=== PATIENT | female | born 1990 | race Caucasian/White ===

== ENCOUNTER → 2017-02-23 | Outpatient (CLI) | payer MEDICAID ==
[~2017-02-23] MED LIST: ACETAMINOPHEN500 M3 PO; BIRTH CONTROL PILL PO; CIPRO 500MG TA500 MG PO; IBUPROFEN400 MG PO; MIRENA52 MG IU; PREDNISONE 20MG20 MG PO; PRENATAL PLUS1 TA1 PO; RANITIDINE HCL150 MG PO; TESSALON PERLE100 MG PO; TESSALON PERLE200 MG PO; TRAMADOL 50MG T50 MG PO; TYLENOL W/CODEI1 TA2 PO; VOLTAREN75 MG PO; ZITHROMAX Z PA250 MG PO; ZITHROMAX Z-PA250 M1 PO; ZOLOFT 50MG TAB50 MG PO
--- NOTE | 2017-02-23 22:37 | RADIOLOGY REPORT PS360 ---
US PREG COMP: INDICATION: 20 WEEK ANATOMICAL SURVEY ORDERING PHYSICIAN: Thor Painting MD PATIENT AGE: 26 years TECHNIQUE: ultrasound transabdominal scanning. COMPARISON: No previous relevant studies. FINDINGS: Single viable intrauterine gestation. Breech position with turning during scan Placenta: Posterior placenta grade 1. There is average amount fluid. The cervix appears satisfactory. Long closed measuring 5.7 cm In length. Complete survey performed and was unremarkable on the submitted images as in PACS. No discrete anomalies identified on survey imaging by technologist. Active fetus.Three-vessel cord with satisfactory umbilical cord insertion. Survey of brain & ventricles. In posterior fossa unremarkable. Face and neck survey unremarkable. Nasion intactNasion face, lips imaging unremarkable Diaphragm and chest views unremarkable. 4- chamber heart imaged. Cine loop included at heart. LVOT imaged Appears to be a male fetus Abdomen: Both kidneys noted and unremarkable. Stomach noted and satisfactory. Spine: Survey of the spine satisfactory with no anomalies identified nor imaged. Both arms and legs noted. Amniotic Fluid: Adequate. Maternal adnexa: No significant findings encountered. Measurements: Average ultrasound age 21 weeks 4 days. Gestational Age 21 weeks 2 days... Based on LMP 09/27/2016. Estimated due date by ultrasound age 207/06/2017. Estimated weight 405 g +/- 50 9 g grams. BPD = 20 weeks 5 days OFD = 21 weeks 2 days HC = 20 week 3 day AC = 21 week 1 day FL = 21 week 4 day Heart Rate = 149 BPM Cerebellum = 20 week 3 day Humerus = 21 week 2 day HC/AC =. 1.11 (1.09-1.26.(1.09-1.26.) CI = 76% (70-86%).(70-86%). FL/BPD is 74 %. FL/AC is 23 %. IMPRESSION: 21 weeks 4 days average ultrasound age breech position , but turned during the exam Posterior placenta no previa . Anatomical survey of unremarkable & WNL
== END ==
LOC: RAD 10:21
DX: Z36.0 Encounter for antenatal screening for chromosomal anomalies (principal)

== ENCOUNTER 2017-04-17 22:30 | Outpatient (CLI) | payer MEDICAID ==
[~2017-04-17] VITALS: Ht 160 cm; Wt 73.0 kg
[2017-04-17 23:19] LABS: URINE BILIRUBIN - DIPSTICK NEGATIVE (NEG); URINE BLOOD NEGATIVE (NEG)
[2017-04-17 23:25] VITALS: BP 150/79
[2017-04-19] MEDS ORDERED: IRON TABLETS325 MG PO (13:21)
[2017-04-19] MEDS ORDERED: RANITIDINE HCL150 MG PO (13:22)
[2017-04-19] MEDS ORDERED: FLINTSTONES GU1 EACH PO (13:23)
== END 2017-04-18 00:20 | disposition home or self-care (01) ==
LOC: OB 22:30 → OBOUT 22:30
PROVIDERS: Obstetrics & Gynecology
DX: O60.03 Preterm labor without delivery, third trimester (principal); Z3A.28 28 weeks gestation of pregnancy

== ENCOUNTER 2017-04-19 12:50 | Outpatient (CLI) | payer MEDICAID ==
[~2017-04-19] VITALS: Ht 160 cm; Wt 72.6 kg
[2017-04-19 13:17] VITALS: BP 126/66
[2017-04-19] MEDS ORDERED: IRON TABLETS325 MG PO (13:21)
[2017-04-19] MEDS ORDERED: RANITIDINE HCL150 MG PO (13:22)
[2017-04-19] MEDS ORDERED: FLINTSTONES GU1 EACH PO (13:23)
[2017-04-19 13:25] LABS: URINE BILIRUBIN - DIPSTICK NEGATIVE (NEG); URINE BLOOD NEGATIVE (NEG)
[2017-04-19 14:14] LABS: URINE SQUAMOUS CELLS 20-50 #/hpf (0-5)
== END 2017-04-19 15:02 | disposition home or self-care (01) ==
LOC: OBOUT 12:50 → OB 12:50 → OBOUT 15:02
PROVIDERS: Nurse Practitioner Obstetrics & Gynecology
DX: O60.03 Preterm labor without delivery, third trimester (principal); Z3A.29 29 weeks gestation of pregnancy

== ENCOUNTER 2017-04-25 20:51 | Outpatient (CLI) | payer MEDICAID ==
[~2017-04-25] VITALS: Ht 160 cm; Wt 75.9 kg
[~2017-04-25 20:51] MED LIST changes: +FLINTSTONES GU1 EACH PO; +IRON TABLETS325 MG PO
[2017-04-25 21:21] VITALS: BP 116/62
[2017-04-25 21:22] LABS: URINE BILIRUBIN - DIPSTICK NEGATIVE (NEG); URINE BLOOD NEGATIVE (NEG)
[2017-04-25 21:29] LABS: AMPHETAMINES/METAMPHETAMINES NEGATIVE ng/mL (<1000)
== END 2017-04-25 22:10 | disposition home or self-care (01) ==
LOC: OBOUT 20:51 → OB 20:51 → OBOUT 22:10
PROVIDERS: Nurse Practitioner Obstetrics & Gynecology
DX: O26.93 Pregnancy related conditions, unspecified, third trimester (principal); Z3A.30 30 weeks gestation of pregnancy; R10.9 Unspecified abdominal pain

== ENCOUNTER 2017-05-05 11:11 | Outpatient (CLI) | payer MEDICAID ==
[~2017-05-05] VITALS: Ht 160 cm; Wt 74.4 kg
[2017-05-05 11:31] VITALS: BP 118/65
[2017-05-05 11:49] LABS: URINE BILIRUBIN - DIPSTICK NEGATIVE (NEG); URINE BLOOD NEGATIVE (NEG)
== END 2017-05-05 13:10 | disposition home or self-care (01) ==
LOC: OBOUT 11:11 → OB 11:11 → OBOUT 13:10
PROVIDERS: Nurse Practitioner Obstetrics & Gynecology
DX: O26.893 Other specified pregnancy related conditions, third trimester (principal); Z3A.31 31 weeks gestation of pregnancy; R10.84 Generalized abdominal pain

== ENCOUNTER 2017-05-06 13:26 | Outpatient (CLI) | payer MEDICAID | END 2017-05-06 13:42 | disposition home or self-care (01) | LOC: OB 13:26 → OBOUT 13:26 | DX: O26.893 Other specified pregnancy related conditions, third trimester (principal); Z3A.31 31 weeks gestation of pregnancy; R10.84 Generalized abdominal pain ==

== ENCOUNTER 2017-05-08 13:29 | Outpatient (CLI) | payer MEDICAID ==
[~2017-05-08] VITALS: Ht 160 cm; Wt 73.5 kg
[2017-05-08 13:57] VITALS: BP 125/67
[2017-05-08 14:12] LABS: URINE BILIRUBIN - DIPSTICK NEGATIVE (NEG); URINE BLOOD NEGATIVE (NEG)
== END 2017-05-08 15:52 | disposition home or self-care (01) ==
LOC: OB 13:29 → OBOUT 13:29
PROVIDERS: Nurse Practitioner Obstetrics & Gynecology
DX: O26.893 Other specified pregnancy related conditions, third trimester (principal); Z3A.32 32 weeks gestation of pregnancy; R10.84 Generalized abdominal pain